=== PATIENT | female | born 1985 | race African-American/Black ===

== ENCOUNTER 2023-11-24 18:40 | Emergency (ER) | payer BC, OTHER ==
[~2023-11-24] VITALS: Ht 152.4 cm; Wt 58.1 kg
[~2023-11-24 18:40] MED LIST: CEFDINIR250 MG/5 M PO; CEFDINIR300 MG PO
[2023-11-24 18:44] VITALS: PULSE 72; RESP 18; TEMP 98.6; O2SAT 100
[2023-11-24] MEDS ORDERED: CYCLOBENZAPRINE5 MG PO (18:55)
[2023-11-24] MEDS ORDERED: MEDROL4 M2 PO (18:55)
[2023-11-24] MEDS: KETOROLAC TROMETHAMINE 60 MG/2 ML VIAL IM ONE (19:02)
== END 2023-11-24 19:03 | disposition home or self-care (01) ==
LOC: ER 18:45
DX: G44.209 Tension-type headache, unspecified, not intractable (principal); M54.2 Cervicalgia; M25.511 Pain in right shoulder
CPT/HCPCS: 99283; J1885

== ENCOUNTER 2024-12-22 18:31 | Emergency (ER) | payer OTHER ==
[~2024-12-22] VITALS: Ht 152.4 cm; Wt 58.1 kg
[~2024-12-22 18:31] MED LIST changes: +CYCLOBENZAPRINE5 MG PO; +MEDROL4 M2 PO
[2024-12-22 20:36] VITALS: TEMP 98.2
[2024-12-22] MEDS ORDERED: OFLOXACIN5 ML OP (20:52)
[2024-12-22] MEDS: FLUORESCEIN SOD(OPTH) 1 MG STRP OP ONE (21:26)
[2024-12-22] MEDS: TETRACAINE HCL 0.5% OPTH SOLN 4 ML BTL OP ONE (21:26)
[2024-12-22 21:34] VITALS: PULSE 66; RESP 18
[2024-12-22 21:39] VITALS: BP 106/71; PULSE 66; RESP 18; O2SAT 99
== END 2024-12-22 21:42 | disposition home or self-care (01) ==
LOC: ER 20:48
DX: H10.9 Unspecified conjunctivitis (principal); Z89.511 Acquired absence of right leg below knee
CPT/HCPCS: 99283